=== PATIENT | male | born 1965 | race Caucasian/White ===

== ENCOUNTER → 2022-03-08 11:30 | Outpatient (BNVA) | payer MEDICARE, MEDICAID, SELFPAY | PROVIDERS: Family Provider Physician Assistant Medical; PCP Family Medicine; Visit Provider Internal Medicine Cardiovascular Disease | DX: I25.10 Atherosclerotic heart disease of native coronary artery without angina pectoris (principal); E66.9 Obesity, unspecified; Z68.41 Body mass index [BMI] 40.0-44.9, adult; I10 Essential (primary) hypertension; I25.2 Old myocardial infarction; Z98.61 Coronary angioplasty status; E78.2 Mixed hyperlipidemia; H54.8 Legal blindness, as defined in USA | CPT/HCPCS: 99213 ==

== ENCOUNTER 2022-06-10 10:04 | Emergency (ER) | payer MEDICARE, MEDICAID, SELFPAY ==
[2022-06-10] VITALS (18 sets, daily range): BP systolic 152–179; BP diastolic 102–124; PULSE 71–100; RESP 14–27; O2SAT 98–100; BMI 40.3
--- NOTE | 2022-06-10 10:06 | XRR_ITS ---
PROCEDURE INFORMATION: Exam: XR Chest Exam date and time: 06/10/2022 10:18 AM Age: 56 years old Clinical indication: Pain; Chest pressure; Prior surgery; Surgery date: 6+ months; Surgery type: Stents; Additional info: Cp TECHNIQUE: Imaging protocol: Radiologic exam of the chest. Views: 1 view. COMPARISON: CR XR chest 1V [id number] 11/19/2018 8:08 AM FINDINGS: Lungs: Unremarkable. No consolidation. Pleural spaces: Unremarkable. No pleural effusion. No pneumothorax. Heart/Mediastinum: Unremarkable. No cardiomegaly. Bones/joints: Unremarkable. XR/XR chest 1V portable [id number] IMPRESSION: No acute findings.
--- NOTE | 2022-06-10 10:06 | ECG_ITS ---
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 Measurements Intervals [place] Rate: 70 P: 33 PA: 192 QRS: -11 QRSD: 97 T: 46 QT: 385 QTc: 418 Interpretive Statements SINUS RHYTHM MODERATE VOLTAGE CRITERIA FOR LVH, CONSIDER NORMAL VARIANT [MEETS CRITERIA IN ONE OF: R(aVL), S(V1), R(V5), R(V5/V6)+S(V1)] Compared to ECG 12/28/2018 05:23:19 Sinus bradycardia no longer present T-wave abnormality no longer present Electronically Signed On 06-10-2022 19:44:16 TEST PREPARER by Kris Simmons M.D. [email or web address]
--- NOTE | 2022-06-10 10:08 | PC.NURSE ---
pt reports feeling lightheaded and tired. states he went to get up but couldn't because he felt everything was moving to the right. pt reports chest pain as well. reports symptoms were present when waking up, went to bed around 1230. pt reports similar symptoms during his last heart attack. pt reports current improvement of symptoms. Per EMS, blood sugar 141
--- NOTE | 2022-06-10 10:11 | ED_ITS ---
Documented by User: Eduardo Watkisn MD 06/10/22 10:16 HPI - Chest Pain General: Chief Complaint: Chest Pain Stated Complaint: CHEST PAIN Time Seen by Provider: 06/10/22 10:05 Source: patient and EMS Mode of arrival: EMS Limitations: no limitations History of Present Illness: 56-year-old male who states that he woke up this morning he has been having chest pain. He states the pain was in the center of his chest started at 4 AM he states he had some dizziness as well and feeling generally weak. He states that his pain is much improved currently. He denies any pain at this time he denies any shortness of breath denies any worsening improving factors. Associated symptoms: Deny abdominal pain, dyspnea, fever(s), nausea or vomiting Review of Systems Const: Denies: fever(s), chills, body aches or change in appetite Eyes: Denies: blurry vision or eye discomfort ENMT: Denies: throat pain or dental pain Card: Reports: chest pain Resp: Denies: dyspnea GI: Denies: abdominal pain, nausea, vomiting or diarrhea : Denies: dysuria Musc: Denies: neck pain or back pain Skin/Breast: Denies: rash Neuro: Reports: dizziness Psych: Denies: depression [place]ario/Lymph: Denies: easy bruising All/Imm: Denies: urticaria PFSH ED PFSH: Medical History ASHD (arteriosclerotic heart disease) Fatigue HTN (hypertension) Hyperlipidemia Legal blindness Myocardial infarction Obesity Surgical History S/P PTCA (percutaneous transluminal coronary angioplasty) Family History Father CAD (coronary artery disease) Diabetes Hypertension Mother Diabetes Social History Smoking and tobacco status: never smoked Physical Exam Const: COMMON NORMALS: patient oriented x3 HENMT: COMMON NORMALS: normocephalic and atraumatic HEAD & SCALP: normocep halic and atraumatic Eye: COMMON NORMALS: Equal, round and reactive pupils present and EOMs intact bilaterally PUPIL: Yes Equal, round and reactive pupils present Neck/C-Spine: COMMON NORMALS: full ROM and supple Chest: COMMONS NORMALS: normal inspection of the chest and normal palpation of entire chest wall Resp: COMMON NORMALS: normal respiratory effort, No retractions, No use of accessory muscles and clear to auscultation bilaterally AUSCULTATION: clear to auscultation bilaterally Cardio: COMMON NORMALS: regular rate, regular rhythm and No murmurs present (Cardio) RATE: regular rate RHYTHM: regular rhythm GI: COMMON NORMALS: Normal to inspection, nondistended, normoactive bowel sounds present, Soft to palpation, non-tender and no masses PALPATION: Yes Soft to palpation Extremity: COMMON NORMALS: normal to inspection and full ROM Neuro: COMMON NORMALS: patient oriented x3, moves all extremities and no focal motor deficits Psych: COMMON NORMALS: mental status grossly normal, Normal thought process present and cooperative THOUGHT PROCESS: Normal thought process present Skin: COMMON NORMALS: no rashes or lesions noted and no wounds GENERAL SKIN EXAM: no rashes or lesions noted Course Vital Signs: Vital signs: Vital Signs Pulse Rate 85 06/10/22 12:45 Respiratory Rate 20 H 06/10/22 12:45 Blood Pressure 167/107 06/10/22 12:45 Pulse Oximetry 99 06/10/22 12:45 Oxygen Delivery Me thod 06/10/22 10:06 MDM - Chest Pain Lab Data 06/10/22 10:43 06/10/22 10:26 Radiology Impressions Chest X-Ray 06/10/22 10:06 IMPRESSION: No acute findings. Laboratory Results WBC 6.4 10^3/uL (4.0-10.0) 06/10/22 10:43 RBC 4.99 10^6/uL (4.1-5.3) 06/10/22 10:43 Hgb 15.4 g/dL (11.7-16.6) 06/10/22 10:43 Hct 45.8 % (42.0-52.0) 06/10/22 10:43 MCV 91.8 fl (80-94) 06/10/22 10:43 MCH 30.9 pg (28.0-34.0) 06/10/22 10:43 MCHC 33.6 g/dL (30.0-36.0) 06/10/22 10:43 RDW 12.5 % (12.1-15.1) 06/10/22 10:43 Plt Count 237 10^3/cmm (130-400) 06/10/22 10:43 MPV 9.7 fL (7.4-10.4) 06/10/22 10:43 Neut % (Auto) 64.4 % 06/10/22 10:43 Lymph % (Auto) 25.3 % 06/10/22 10:43 [place] % (Auto) 6.4 % 06/10/22 10:43 Eos % (Auto) 2.8 % 06/10/22 10:43 Baso % (Auto) 0.8 % 06/10/22 10:43 Neut # (Auto) 4.10 10^3/uL (1.8-7.7) 06/10/22 10:43 Lymph # (Auto) 1.6 10^3/uL (0.8-4.8) 06/10/22 10:43 [place] # (Auto) 0.4 10^3/uL (0.2-0.9) 06/10/22 10:43 Eos # (Auto) 0.2 10^3/uL (0.0-0.8) 06/10/22 10:43 Baso # (Auto) 0.1 10^3/uL (0.0-0.1) 06/10/22 10:43 Nucleated RBC % (auto) 0 % 06/10/22 10:43 Nucleated RBCs # 0.0 /100WBC 06/10/22 10:43 PT 13.70 SECONDS (12.1-14.9) 06/10/22 10:26 INR 1.02 (0.8-1.2) 06/10/22 10:26 Sodium 134 mmol/L (136-145) L 06/10/22 10:26 Potassium 4.0 mmol/L (3.5-5.1) 06/10/22 10:26 Chloride 99 mmol/L (98-107) 06/10/22 10:26 Carbon Dioxide 27 mmol/L (22-29) 06/10/22 10:26 Anion Gap 12.0 (5-19) 06/10/22 10:26 BUN 13 mg/dL (6-20) 06/10/22 10:26 Creatinine 0.9 mg/dL (0.7-1.2) 06/10/22 10:26 GFR Calculation 87.0 mL/min (90-130) L 06/10/22 10:26 Glucose 161 mg/dL (65-115) H 06/10/22 10:26 Calculated Osmolality 282 mOsm/kg (285-295) L 06/10/22 10:26 Calcium 9.3 mg/dL (8.5-10.5) 06/10/22 10:26 Total Bilirubin 0.5 mg/dL (0.15-1.2) 06/10/22 10:26 AST 22 U/L (0-40) 06/10/22 10:26 ALT 25 U/L (0-41) 06/10/22 10:26 Alkaline Phosphatase 87 U/L (40-130) 06/10/22 10:26 Troponin T Baseline 11 ng/L (0-15) 06/10/22 10:26 Troponin T 120 Minute 11.10 ng/L (0-15) 06/10/22 12:40 Delta Troponin T 0.10 ABS# (0-10) 06/10/22 12:40 Total Protein 7.8 g/dL (6.6-8.7) 06/10/22 10:26 Albumin 3.8 g/dL (3.5-5.2) 06/10/22 10:26 Globulin 4.0 g/dL (1.3-4.6) 06/10/22 10:26 EKG Data EKG 1: I personally reviewed and interpreted this EKG as follows: EKG interpretation date: 06/10/22 EKG interpretation time: 10:10 Interpretation: nsr hr [address] or t wave abnormalities qrs 97 qtc 407 Discharge Plan Discharge Patient Disposition: Home Clinical Impression: Chest pain, ASHD (arteriosclerotic heart disease), HTN (hypertension), Obesity, Hyperlipidemia Condition: Stable Prescriptions: New isosorbide mononitrate 60 mg tablet extended release 24 hr 60 mg PO DAILY Qty: 30 0RF No Action loratadine 10 mg tablet 10 mg PO DAILY clopidogrel 75 mg tablet 75 mg PO DAILY Qty: 30 1RF nitroglycerin [Nitrostat] 0.4 mg tablet, sublingual 0.4 mg SUBLINGUAL Q5M PRN (Reason: chest pain) Qty: 25 0RF simvastatin 80 mg tablet 80 mg PO .HS Qty: 100 3RF metoprolol succinate 25 mg tablet extended release 24 hr 25 mg PO DAILY Qty: 90 3RF amlodipine 5 mg tablet 5 mg PO BID Qty: 180 3RF valsartan 40 mg tablet 40 mg PO DAILY Qty: 100 1RF Discharge Orders: Discharge ED (Routine); Ordered 06/10/22 Ordered By: Peter Wang Referrals: Ninoska Zuniga MD [Primary Care Provider] - Felipe Beal [Referring] - Patient Instructions: Opioid Safety, Pain Management Activity Restrictions/Additional Instructions: You were seen today for an episode of chest pain. Your EKG and chest x-rays and cardiac enzymes did not show anything significant. Reviewing your chart you brambila d an angiogram in November 2018 where you had 2 stents placed the remainder of the coronary arteries at that time were normal. We are starting you on a long- acting nitrate and scheduling you for an outpatient stress testing. If any recurrence of symptoms return to the emergency room. Sign Out Sign Out Data: Patient Sign Out occurred on 06/10/22 at 12:06. Patient's care was discussed, and care was transferred from to Peter Wang DO. Coding Level of Care Code ED Ethnoarchaeologist for Chg Fwd Exam Comprehensive Documented by User: Peter Wang DO 06/10/22 13:43 HPI - Chest Pain General: Chief Complaint: Chest Pain Stated Complaint: CHEST PAIN Time Seen by Provider: 06/10/22 10:05 [facility] ED PFSH: Medical History ASHD (arteriosclerotic heart disease) Fatigue HTN (hypertension) Hyperlipidemia Legal blindness Myocardial infarction Obesity Surgical History S/P PTCA (percutaneous transluminal coronary angioplasty) Family History Father CAD (coronary artery disease) Diabetes Hypertension Mother Diabetes Social History Smoking and tobacco status: never smoked Course Vital Signs: Vital signs: Vital Signs Pulse Rate 85 06/10/22 12:45 Respiratory Rate 20 H 06/10/22 12:45 Blood Pressure 167/107 06/10/22 12:45 Pulse Oximetry 99 06/10/22 12:45 Oxygen Delivery Me thod 06/10/22 10:06 MDM - Chest Pain Medical Decision Making Care assumed at change of shift EKG does not show any acute ST changes. Patient states he feels fine. His blood pressure is elevated some reviewed his medications. He is taking his Plavix regularly. Organ to go ahead and add isosorbide mononitrate at 60 mg/day and have him get set up for an outpatient Lexiscan sestamibi stress test he has any worsening or change of his symptoms or recurrence return to the emergency room. Reviewing his chart in November 2018 he had 2 stents placed and 1 in the first obtuse marginal and the second and the third obtuse marginal branch. The remainder of his coronary arteries were normal at that time. At this point and think we can discharge the patient home and to follow-up with with a outpatient Lexiscan test. Interestingly he had a Lexiscan sestamibi stress test in December 2018 there is a question of some reversibility but he seen cardiology since and have elected not to return to the Clinical Mental Health Counselor at this point. We will have him get a stress test and then follow-up with cardiology return if he has further problems. Medical Records I reviewed the patient's medical records. Lab Data I reviewed the patient's lab results. 06/10/22 10:43 06/10/22 10:26 Radiology Impressions Chest X-Ray 06/10/22 10:06 IMPRESSION: No acute findings. Laboratory Results WBC 6.4 10^3/uL (4.0-10.0) 06/10/22 10:43 RBC 4.99 10^6/uL (4.1-5.3) 06/10/22 10:43 Hgb 15.4 g/dL (11.7-16.6) 06/10/22 10:43 Hct 45.8 % (42.0-52.0) 06/10/22 10:43 MCV 91.8 fl (80-94) 06/10/22 10:43 MCH 30.9 pg (28.0-34.0) 06/10/22 10:43 MCHC 33.6 g/dL (30.0-36.0) 06/10/22 10:43 RDW 12.5 % (12.1-15.1) 06/10/22 10:43 Plt Count 237 10^3/cmm (130-400) 06/10/22 10:43 MPV 9.7 fL (7.4-10.4) 06/10/22 10:43 Neut % (Auto) 64.4 % 06/10/22 10:43 Lymph % (Auto) 25.3 % 06/10/22 10:43 [place] % (Auto) 6.4 % 06/10/22 10:43 Eos % (Auto) 2.8 % 06/10/22 10:43 Baso % (Auto) 0.8 % 06/10/22 10:43 Neut # (Auto) 4.10 10^3/uL (1.8-7.7) 06/10/22 10:43 Lymph # (Auto) 1.6 10^3/uL (0.8-4.8) 06/10/22 10:43 [place] # (Auto) 0.4 10^3/uL (0.2-0.9) 06/10/22 10:43 Eos # (Auto) 0.2 10^3/uL (0.0-0.8) 06/10/22 10:43 Baso # (Auto) 0.1 10^3/uL (0.0-0.1) 06/10/22 10:43 Nucleated RBC % (auto) 0 % 06/10/22 10:43 Nucleated RBCs # 0.0 /100WBC 06/10/22 10:43 PT 13.70 SECONDS (12.1-14.9) 06/10/22 10:26 INR 1.02 (0.8-1.2) 06/10/22 10:26 Sodium 134 mmol/L (136-145) L 06/10/22 10:26 Potassium 4.0 mmol/L (3.5-5.1) 06/10/22 10:26 Chloride 99 mmol/L (98-107) 06/10/22 10:26 Carbon Dioxide 27 mmol/L (22-29) 06/10/22 10:26 Anion Gap 12.0 (5-19) 06/10/22 10:26 BUN 13 mg/dL (6-20) 06/10/22 10:26 Creatinine 0.9 mg/dL (0.7-1.2) 06/10/22 10:26 GFR Calculation 87.0 mL/min (90-130) L 06/10/22 10:26 Glucose 161 mg/dL (65-115) H 06/10/22 10:26 Calculated Osmolality 282 mOsm/kg (285-295) L 06/10/22 10:26 Calcium 9.3 mg/dL (8.5-10.5) 06/10/22 10:26 Total Bilirubin 0.5 mg/dL (0.15-1.2) 06/10/22 10:26 AST 22 U/L (0-40) 06/10/22 10:26 ALT 25 U/L (0-41) 06/10/22 10:26 Alkaline Phosphatase 87 U/L (40-130) 06/10/22 10:26 Troponin T Baseline 11 ng/L (0-15) 06/10/22 10:26 Troponin T 120 Minute 11.10 ng/L (0-15) 06/10/22 12:40 Delta Troponin T 0.10 ABS# (0-10) 06/10/22 12:40 Total Protein 7.8 g/dL (6.6-8.7) 06/10/22 10:26 Albumin 3.8 g/dL (3.5-5.2) 06/10/22 10:26 Globulin 4.0 g/dL (1.3-4.6) 06/10/22 10:26 Discharge Plan Discharge Patient Disposition: Home Clinical Impression: Chest pain, ASHD (arteriosclerotic heart disease), HTN (hypertension), Obesity, Hyperlipidemia Condition: Stable Prescriptions: New isosorbide mononitrate 60 mg tablet extended release 24 hr 60 mg PO DAILY Qty: 30 0RF No Action loratadine 10 mg tablet 10 mg PO DAILY clopidogrel 75 mg tablet 75 mg PO DAILY Qty: 30 1RF nitroglycerin [Nitrostat] 0.4 mg tablet, sublingual 0.4 mg SUBLINGUAL Q5M PRN (Reason: chest pain) Qty: 25 0RF simvastatin 80 mg tablet 80 mg PO .HS Qty: 100 3RF metoprolol succinate 25 mg tablet extended release 24 hr 25 mg PO DAILY Qty: 90 3RF amlodipine 5 mg tablet 5 mg PO BID Qty: 180 3RF valsartan 40 mg tablet 40 mg PO DAILY Qty: 100 1RF Discharge Orders: Discharge ED (Routine); Ordered 06/10/22 Ordered By: Peter Wang Referrals: Ninoska Zuniga MD [Primary Care Provider] - Felipe Beal [Referring] - Patient Instructions: Opioid Safety, Pain Management Activity Restrictions/Additional Instructions: You were seen today for an episode of chest pain. Your EKG and chest x-rays and cardiac enzymes did not show anything significant. Reviewing your chart you had an angiogram in November 2018 where you had 2 stents placed the remainder of the coronary arteries at that time were normal. We are starting you on a long- acting nitrate and scheduling you for an outpatient stress testing. If any recurrence of symptoms return to the emergency room. Sign Out Sign Out Data: Patient Sign Out occurred on 06/10/22 at 12:06. Patient's care was discussed, and care was transferred from to Peter Wang DO. Coding Level of Care Code ED Ethnoarchaeologist for Soledad Reddy Exam Comprehensive
--- NOTE | 2022-06-10 10:30 | PC.NURSE ---
during triage, pt stated he needed to use the restroom, informed pt nurse would bring him a urinal. pt refused to use urinal and stated he would walk to bathroom. reviewed with pt symptoms he stated he was having, pt stated they have all resolved. educated pt on fall risk and risks involved with exertion prior to medical clearance from physician. pt agreeable to transport to restroom via wheelchair. pt to and from restroom, reconnected to VS and superintendent maintenance
[2022-06-10] MEDS: hyDRALAzine 20 mg/mL INJ 1 mL 10 MG IVP (10:44)
[2022-06-10 10:53] LABS: INR 1.02 (0.8-1.2)
[2022-06-10 10:59] LABS: Basophils # 0.1 10^3/uL (0.0-0.1); Basophils % 0.8 %; Eosinophils # 0.2 10^3/uL (0.0-0.8); Eosinophils % 2.8 %; Hematocrit 45.8 % (42.0-52.0); Hemoglobin 15.4 g/dL (11.7-16.6); Lymphocytes # 1.6 10^3/uL (0.8-4.8); Lymphocytes % 25.3 %; Mean Corpuscular HGB Conc 33.6 g/dL (30.0-36.0); Mean Corpuscular Hemoglobin 30.9 pg (28.0-34.0); Mean Corpuscular Volume 91.8 fl (80-94); Mean Platelet Volume 9.7 fL (7.4-10.4); Monocytes # 0.4 10^3/uL (0.2-0.9); Monocytes % 6.4 %; Neutrophils % 64.4 %; Nucleated Red Blood Cells % 0 %; Platelet Count 237 10^3/cmm (130-400); Red Blood Count 4.99 10^6/uL (4.1-5.3); Red Cell Distribution Width 12.5 % (12.1-15.1); White Blood Count 6.4 10^3/uL (4.0-10.0)
[2022-06-10 11:17] LABS: Troponin(5th) Baseline 11 ng/L (0-15)
[2022-06-10 11:18] LABS: Alanine Aminotransferase 25 U/L (0-41); Albumin Level 3.8 g/dL (3.5-5.2); Alkaline Phosphatase 87 U/L (40-130); Aspartate Amino Transferase 22 U/L (0-40); Blood Urea Nitrogen 13 mg/dL (6-20); Calcium 9.3 mg/dL (8.5-10.5); Carbon Dioxide 27 mmol/L (22-29); Chloride 99 mmol/L (98-107); Glucose 161 mg/dL (65-115); Osmolality Calculated 282 mOsm/kg (285-295); Sodium 134 mmol/L (136-145); Total Bilirubin 0.5 mg/dL (0.15-1.2); Total Protein 7.8 g/dL (6.6-8.7)
--- NOTE | 2022-06-10 12:05 | ECG_ITS ---
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 Measurements Intervals [place] Rate: 72 P: 31 GA: 181 QRS: -4 QRSD: 101 T: 58 QT: 365 QTc: 400 Interpretive Statements SINUS RHYTHM MINIMAL VOLTAGE CRITERIA FOR LVH, CONSIDER NORMAL VARIANT [MEETS CRITERIA IN ONE OF: R(aVL), S(V1), R(V5), R(V5/V6)+S(V1)] Compared to ECG 06/10/2022 10:10:47 No significant changes Electronically Signed On 06-10-2022 19:56:38 WAREHOUSE ASSOCIATE by Kris Simmons M.D. [email or web address]
[2022-06-10] MEDS: isosorbide mononitrate ER 60 mg Tablet PO (14:20)
--- NOTE | 2022-06-12 08:19 | DCPLANNER ---
Addendum entered by Asuncion Goel 07/27/22 14:52: Patient had a follow up appointment scheduled for an outpatient stress test - patient did attend appointment. Addendum entered by Asuncion Goel 06/26/22 15:32: Patient has a stress test scheduled for Wednesday, July 20, 2022 at 10:45. Centralized scheduling will call patient with appointment information. Original Note: partnership development manager had message to schedule an outpatient stress test for patient. partnership development manager faxed signed order to centralized scheduling, who will call patient with appointment information.
== END 2022-06-10 14:30 | disposition home or self-care (01) ==
PROVIDERS: Emergency Medicine; Emergency Provider Family Medicine; PCP Family Medicine
DX: R07.9 Chest pain, unspecified (principal); I25.10 Atherosclerotic heart disease of native coronary artery without angina pectoris; I10 Essential (primary) hypertension; E66.9 Obesity, unspecified; E78.5 Hyperlipidemia, unspecified; Z68.41 Body mass index [BMI] 40.0-44.9, adult
CPT/HCPCS: 36415; 71045; 80053; 84484; 85025; 85610; 93005; 96374; 99285; J0360

== ENCOUNTER 2022-07-20 07:23 | Outpatient (CLI) | payer MEDICARE, MEDICAID, SELFPAY ==
--- NOTE | 2022-07-20 | ECG_ITS ---
[facility] Test Date: 2022-07-20 Pat Name: Doug Lopez Department: Room: Gender: Male Chief Orthoptist: : 1965 Requested By: Peter Cantrell Order Number: [id number] Isabela MD: Ayad Calderon M.D. Interpretive Statements NAME OF STUDY: LEXISCAN SESTAMIBI STRESS TEST INDICATION: Chest Pain, PROCEDURE: At the baseline, the EKG revealed normal sinus rhythm with a poor R wave progression. The baseline heart was 72 bpm with a blood pressue of 143/106 mm of Hg Lexiscan was infused over a period of 20 seconds. A total of 0.4 milligrams of Lexiscan was infused. The stress phase was continued for a total of 5 minutes. Heart rate at the end of the stress phase was 92 bpm with a blood pressure 144/102 mm of Hg. The EKG at the peak infusion revealed no significant changes. Sestamibi was injected 20 seconds after the Lexiscan infusion. Heart rate at the end of the recovery phase was 86 bpm with a blood pressure of 141/98 mm of Hg. CONCLUSION: 1. No significant EKG changes with the LexiScan infusion 2. No LexiScan induced chest pain or cardiac arrhythmia 3. Normal blood pressure and heart rate response 4. Sestamibi/sestamibi perfusion scan pending; see separate report. Electronically Signed On 07-20-2022 12:01:17 BODY STYLIST by Ayad Calderon M.D. [email or web address]
[2022-07-20 07:50] VITALS: BMI 42.4
--- NOTE | 2022-07-20 07:54 | NMCV_ITS ---
NM michael perf SPECT r/s* [id number] Lopez Doug Age: 56 Gender: M : 1965 Exam Date: 07/20/2022 07:54 Ordering Phys: Peter Wang DO Technologist: ANABEL Shook Exam Location: [facility] Indications: CHEST PAIN STRESS TEST Please see separate stress test report in [facility] for full findings IMAGE PROTOCOL Rest/Stress 1 Lexiscan Day Radiopharmaceutical Dose (mCi) Administration Site Administered by Rest: Tc-99m 11.0 IV ANABEL Shook Sestamibi Stress:Tc-99m 33.0 IV ANABEL Jeffers Sestamibi Rest: 20-Jul-2022 60 Discovery 630 Stress: 20-Jul-2022 30 Discovery 630 0.4mg Lexiscan. Images obtained in supine and prone position. SPECT RESULTS Technical Quality: Excellent Raw Data Analysis: Normal Image Corrections: No attenuation or motion correction applied Summed Stress Score: 2 Summed Rest Score: 7 Summed Difference Score: 0 PERFUSION FINDINGS There is reduced radiotracer uptake in apical anterior and anterior wall that improves on stress imaging. This is likely secondary to attenuation artifact. No evidence of ischemia seen. FUNCTIONAL RESULTS (calculated via Gated SPECT) Stress Image LV EF (%): 56 Stress EDV (mL):96 TID: 1.08 Stress ESV (mL):42 FUNCTIONAL FINDINGS: There is normal left ventricular systolic function. IMPRESSIONS 1. Attenuation artifact is seen in anterior and apical anterior wall. No evidence of ischemia. 2. LV systolic motion is normal. Kris Simmons MD (Electronically Signed) Final Date: 20 July 2022 13:08 S
[2022-07-20] MEDS: regadenoson 0.4 Mg/5 ml Syringe IVP (09:37)
[2022-07-20 09:55] VITALS: BP 141/98; PULSE 89
== END 2022-07-20 07:24 | disposition home or self-care (01) ==
LOC: CDL 07:25
PROVIDERS: PCP Family Medicine; Visit Provider Family Medicine
DX: R07.9 Chest pain, unspecified (principal)
CPT/HCPCS: 36415; 78452; 93017; 96374; A9500; J2785

== ENCOUNTER → 2022-09-06 12:39 | Outpatient (BNVA) | payer MEDICARE, MEDICAID, SELFPAY | PROVIDERS: PCP Family Medicine; Visit Provider Internal Medicine | DX: I25.118 Atherosclerotic heart disease of native coronary artery with other forms of angina pectoris (principal); I10 Essential (primary) hypertension; E78.5 Hyperlipidemia, unspecified; R53.82 Chronic fatigue, unspecified; I25.2 Old myocardial infarction | CPT/HCPCS: 99214 ==

== ENCOUNTER → 2023-06-13 12:12 | Outpatient (BNVA) | payer MEDICARE, MEDICAID, SELFPAY | PROVIDERS: PCP Family Medicine; Visit Provider Internal Medicine | DX: I25.10 Atherosclerotic heart disease of native coronary artery without angina pectoris (principal); I10 Essential (primary) hypertension; E78.5 Hyperlipidemia, unspecified; R53.82 Chronic fatigue, unspecified | CPT/HCPCS: 99214 ==

== ENCOUNTER → 2024-03-12 13:37 | Outpatient (BNVA) | payer MEDICARE, MEDICAID, SELFPAY | PROVIDERS: PCP Family Medicine; Visit Provider Internal Medicine | DX: I25.10 Atherosclerotic heart disease of native coronary artery without angina pectoris (principal); I10 Essential (primary) hypertension; E78.5 Hyperlipidemia, unspecified; R53.82 Chronic fatigue, unspecified | CPT/HCPCS: 99214 ==

== ENCOUNTER → 2024-12-10 14:23 | Outpatient (BNVA) | payer OTHER, MEDICAID, SELFPAY | PROVIDERS: PCP Family Medicine; Visit Provider Internal Medicine | DX: I25.10 Atherosclerotic heart disease of native coronary artery without angina pectoris (principal); I10 Essential (primary) hypertension; E78.5 Hyperlipidemia, unspecified; Z79.02 Long term (current) use of antithrombotics/antiplatelets; Z98.61 Coronary angioplasty status; I25.2 Old myocardial infarction | CPT/HCPCS: 99213 ==